=== PATIENT | male | born 1995 | race Caucasian/White ===

== ENCOUNTER 2023-01-31 13:42 | Observation (INO) | payer MEDICAID, SELFPAY ==
[2023-01-31 13:43] VITALS: BP 127/93; PULSE 114; RESP 16; TEMP 36.6; O2SAT 97
--- NOTE | 2023-01-31 13:54 | EDS_ITS ---
HPI <JESSE Leung - Last Filed: 01/31/23 18:00> History of Present Illness Chief Complaint: Substance Abuse Narrative Narrative: 27-year-old male is here to detox from fentanyl. He smokes fentanyl every 2 hours and he started a month and a half ago. Prior to that he was smoking Percocet pills. He also uses marijuana and vapes nicotine. Denies recent alcohol use. He last smoked fentanyl about 45 minutes ago and states he feels nauseated and sweaty. PFSH <JESSE Leung - Last Filed: 01/31/23 18:00> PFS Medical History ADHD Alcohol abuse Anxiety Bipolar disorder Depression Fentanyl dependence Smoker Home Medications NK 01/31/23 [History Last Taken Unknown] Allergy/AdvReac Type Severity Reaction Status Date / Time No Known Allergies Allergy Verified 01/31/23 13:45 Family History no significant family his Surgical History no surgical history Social History (Updated 01/31/23 @ 14:09 by Courtney Perez) housing: apartment Smoking Status: Current every day smoker tobacco type: e-cigarettes ROS <JESSE Leung - Last Filed: 01/31/23 18:00> ROS ED ROS Narrative Constitutional: Negative for fever, chills. CVS: Negative for palpitations, chest pain, syncope. Respiratory: Negative for shortness of breath. GI: Positive for nausea, no vomiting. EXAM <JESSE Leung - Last Filed: 01/31/23 18:00> Physical Exam Narrative Exam Narrative: CONST: Patient sitting in no acute distress. EYES: Normal inspection. ENT: Normal inspection, moist mucous membranes. NECK: Normal inspection. RESP: No respiratory distress, CTAB. CVS: Tachycardic with regular rhythm, no murmur, no gallop. ABD: Soft and nontender, no guarding or rebound, nondistended. SKIN: Color normal, no rash, warm, dry, intact. EXTREMITIES: Normal appearance, no pedal edema. NEURO: Oriented x4. PSYCH: Normal affect. Const Vital Signs: 01/31/23 13:43 01/31/23 16:00 01/31/23 16:00 Temperature 97.9 F Temperature Source Temporal Pulse Rate 114 H 82 82 Respiratory Rate 16 20 H 20 H Blood Pressure 127/93 H Blood Pressure Mean 104 Pulse Ox 97 98 98 Oxygen Delivery Method Room Air <Dr. Santos Olivarez DO - Last Filed: 01/31/23 16:30> Physical Exam Const Vital Signs: 01/31/23 13:43 01/31/23 16:00 01/31/23 16:00 Temperature 97.9 F Temperature Source Temporal Pulse Rate 114 H 82 82 Respiratory Rate 16 20 H 20 H Blood Pressure 127/93 H Blood Pressure Mean 104 Pulse Ox 97 98 98 Oxygen Delivery Method Room Air MDM <JESSE Leung - Last Filed: 01/31/23 18:00> MDM MDM Narrative Medical decision making narrative: Patient wants to detox from smoking fentanyl. Last use 45 minutes prior to arri myles. He appears well and nontoxic and tachycardic at 114 with otherwise stable vital signs. He is diaphoretic and slightly tachycardic with an otherwise benign exam. His only complaint was nausea so I ordered Zofran. CBC is within normal limits. BMP shows mild transaminitis with AST of 104, ALT 140. Urine tox positive for MDMA, benzodiazepines, and cannabinoids. Alcohol negative. Was discussed with the hospitalist for admission. Lab Data Attestation: I reviewed the patient's lab results. Labs: Laboratory Results - last 24 hr 01/31/23 14:01 WBC 8.4 RBC 4.95 Hgb 14.8 Hct 44.6 MCV 90.1 MCH 29.9 MCHC 33.2 RDW Std Deviation 41.1 RDW Coeff of Rc 12.4 Plt Count 274 MPV 8.5 Immature Gran % (Auto) 0.200 Neut % (Auto) 75.9 H Lymph % (Auto) 12.9 L Coleman % (Auto) 9.0 Eos % (Auto) 1.6 Baso % (Auto) 0.4 Absolute Neuts (auto) 6.3 Absolute Lymphs (auto) 1.08 Nucleated RBC % 0 Sodium 136 Potassium 3.7 Chloride 101 Carbon Dioxide 27.0 Anion Gap 8 BUN 14 Creatinine 1.31 H Estim Creat Clear Calc 72.40 Est GFR (MDRD) Af Amer 85 Est GFR (MDRD) Non-Af 70 BUN/Creatinine Ratio 10.7 Glucose 138 H Calcium 10.0 Total Bilirubin 0.50 AST 104 H ALT 140 H Alkaline Phosphatase 72 Total Protein 8.3 H Albumin 3.9 Globulin 4.4 H Albumin/Globulin Ratio 0.9 Urine Opiates Screen NEGATIVE Urine Methadone Screen NEGATIVE Ur Barbiturates Screen NEGATIVE Ur Phencyclidine Scrn NEGATIVE Ur Amphetamines Screen NEGATIVE MDMA (Ecstasy) Screen POSITIVE H U Benzodiazepines Scrn POSITIVE H Urine Cocaine Screen NEGATIVE U Cannabinoids Screen POSITIVE H Ur Drug Screen Comment Ethyl Alcohol < 3.0 <Dr. Santos Olivarez, DO - Last Filed: 01/31/23 16:30> MDM Lab Data Labs: Laboratory Results - last 24 hr 01/31/23 14:01 WBC 8.4 RBC 4.95 Hgb 14.8 Hct 44.6 MCV 90.1 MCH 29.9 MCHC 33.2 RDW Std Deviation 41.1 RDW Coeff of Rc 12.4 Plt Count 274 MPV 8.5 Immature Gran % (Auto) 0.200 Neut % (Auto) 75.9 H Lymph % (Auto) 12.9 L Coleman % (Auto) 9.0 Eos % (Auto) 1.6 Baso % (Auto) 0.4 Absolute Neuts (auto) 6.3 Absolute Lymphs (auto) 1.08 Nucleated RBC % 0 Sodium 136 Potassium 3.7 Chloride 101 Carbon Dioxide 27.0 Anion Gap 8 BUN 14 Creatinine 1.31 H Estim Creat Clear Calc 72.40 Est GFR (MDRD) Af Amer 85 Est GFR (MDRD) Non-Af 70 BUN/Creatinine Ratio 10.7 Glucose 138 H Calcium 10.0 Total Bilirubin 0.50 AST 104 H ALT 140 H Alkaline Phosphatase 72 Total Protein 8.3 H Albumin 3.9 Globulin 4.4 H Albumin/Globulin Ratio 0.9 Urine Opiates Screen NEGATIVE Urine Methadone Screen NEGATIVE Ur Barbiturates Screen NEGATIVE Ur Phencyclidine Scrn NEGATIVE Ur Amphetamines Screen NEGATIVE MDMA (Ecstasy) Screen POSITIVE H U Benzodiazepines Scrn POSITIVE H Urine Cocaine Screen NEGATIVE U Cannabinoids Screen POSITIVE H Ur Drug Screen Comment Ethyl Alcohol < 3.0 Treatment and Re-Evaluation Narrative: I have personally performed a face to face assessment of the patient and have reviewed the CAROLYN Note. I performed a substantive portion of the visit including all aspects of the following. My jefferson findings include: History: Patient presents requesting detox from opiates. Patient states he smokes fentanyl. Patient states his last use was approximate 1 hour prior to arrival. Patient admits to some subjective fevers. Patient admits to some palpitations. Patient denies any vomiting but admits to some nausea. Patient denies any diarrhea. Patient denies any seizures or tremors. Patient denies any suicidal or homicidal ideations. Exam: Vital signs are stable except for mild tachycardia 114. Patient is afebrile. Patient is in no acute distress. Oral mucosa is pink and moist. Neck is supple. Trachea is midline. There is no JVD. Heart was regular and tachycardic. Lungs are clear and equal bilaterally. Abdomen is soft. Bowel sounds are normal. There is no tenderness, rebound, or guarding. Cranial nerves II through XII are intact. There are no focal motor or sensory deficits noted. Medical Decision Making: Medical screening labs will be obtained. CBC will be obtained to assess for leukocytosis and anemia. Comprehensive metabolic profile will be obtained to assess for hepatic function, renal function, and electrolyte abnormality. Serum alcohol level will be obtained to assess for alcohol intoxication. Urine drug screen will be obtained to assess for substance abuse. CBC was reviewed and was within normal limits. Basic metabolic profile was reviewed and showed a slightly elevated creatinine of 1.31. The remainder was essentially within normal limits. Urine tox screen was positive for MDMA, benzodiazepines, and cannabinoids. Serum alcohol level was reviewed and was less than 3.0. Case was discussed with the hospitalist. He will admit the patient to his service. Patient understood and was agreeable with the plan. All questions were answered. Discharge Plan Dx/Rx/DC Orders Clinical Impression: Desire for detoxification, Transaminitis, Polysubstance abuse Disposition Disposition: Acute Care Hospital [facility] Discharge Date/Time: 01/31/23 16:36
[2023-01-31] MEDS: Ondansetron 4 MG/2 ML Vial IV (14:06)
[2023-01-31 14:08] VITALS: BMI 18.9
[2023-01-31 14:11] LABS: Absolute Lymphocyte Count 1.08 X10^3/uL (0.83-4.51); Absolute Neutrophil Count 6.3 X10^3/uL (2.0-7.7); Basophil# 0.03 X10^3/uL; Basophil% 0.4 % (0-1); Eosinophil# 0.13 X10^3/uL; Eosinophils% 1.6 % (0-5); Hematocrit 44.6 % (40-54); Hemoglobin 14.8 g/dL (13.0-16.5); Lymphocyte # 1.08 X10^3/ul (0.83-4.51); Lymphocyte % 12.9 % (19-41); Mean Corp Hgb Conc 33.2 g/dL (32-36); Mean Corpuscular Hgb 29.9 pg (27.0-32.0); Mean Corpuscular Volume 90.1 fL (80-94); Mean Platelet Vol. 8.5 fl (6.2-12.0); Monocyte# 0.75 X10^3/uL; NRBC Flagged by Analyzer 0 % (0-5); Neutrophil # 6.34 X10^3/uL (2.7-7.7); Neutrophil % 75.9 % (47-70); Platelet Count 274 K/mm3 (150-450); RBC Distribution Width CV 12.4 % (11.6-14.6); RBC Distribution Width SD 41.1 fl (35.1-43.9); Red Blood Count 4.95 M/mm3 (4.6-6.2); White Blood Count 8.4 K/mm3 (4.4-11.0)
[2023-01-31 14:26] LABS: ALB/GLOB Ratio 0.9 RATIO (0.9-2.4); AST(SGOT) 104 U/L (15-37); Alanine Aminotransfer ALT/SGPT 140 U/L (16-61); Albumin, Serum 3.9 g/dL (3.2-5.0); Alkaline Phosphatase 72 U/L (45-117); Anion Gap 8 (5-15); BUN 14 mg/dL (7-18); BUN/Creat Ratio 10.7 RATIO (10-20); Chloride 101 mmol/L (98-107); Creatinine, Serum 1.31 mg/dL (0.70-1.30); EST Glomerular Filtration Rate 70 mL/min (>60); Est Glom Filt Rate - Afr Amer 85 mL/min (>60); Globulin 4.4 g/dL (2.2-4.2); Glucose 138 mg/dL (74-106); Potassium 3.7 mmol/L (3.5-5.1); Protein, Total 8.3 g/dL (6.4-8.2); Sodium Level 136 mmol/L (136-145)
[2023-01-31 14:28] LABS: Amphetamine Urine VISTA NEGATIVE (<1000 ng/mL); Barbiturate Urine VISTA NEGATIVE (< 200 ng/mL); Benzodiazepine Urine VISTA POSITIVE (< 200 ng/mL); Cocaine Urine VISTA NEGATIVE (< 300 ng/mL); Ecstacy Urine VISTA POSITIVE (< 500 ng/mL); Methadone Urine VISTA NEGATIVE (< 300 ng/mL); PCP Urine VISTA NEGATIVE (< 25 ng/mL); THC Urine VISTA POSITIVE (< 50 ng/mL); Vista UDS pH Range 7
[2023-01-31 15:04] LABS: Alcohol, Blood (Medical)-Serum < 3.0 mg/dL
[2023-01-31 16:00] VITALS: PULSE 82; RESP 20; O2SAT 98
--- NOTE | 2023-01-31 16:03 | PCM.HP.STD ---
HPI - General General Date of Admission: 01/31/23 HPI Narrative VIVI ZIMMER, is a 27 M who presents to the hospital requesting detox from opiates. He smokes fentanyl which she is never done before any started about a month and a half ago. His last use was about 45 minutes prior to presenting to the hospital for detox. He has gone through detox before for other drugs but he says that he is never used final before and he is never gone through detox here. [facility] Medical History (Updated 01/31/23 @ 14:37 by JESSE Leung) ADHD Fentanyl dependence Home Medications NK 01/31/23 [History Last Taken Unknown] Allergy/AdvReac Type Severity Reaction Status Date / Time No Known Allergies Allergy Verified 01/31/23 13:45 Family History no significant family his no significant family history Surgical History no surgical history no surgical history Social History (Updated 01/31/23 @ 14:09 by Courtney Perez) housing: apartment Smoking Status: Current every day smoker tobacco type: e-cigarettes ROS Constitutional Constitutional: Denies chills, fatigue, fever(s) or malaise Eyes Eyes: Denies blurry vision ENT HEENT: Denies headache(s) or nasal discharge Cardiovascular Cardiovascular: Denies chest pain, dyspnea on exertion or syncope Respiratory/Chest Respiratory/Chest: Denies cough, shortness of breath at rest or shortness of breath with exertion Gastrointestinal Gastrointestinal: Reports nausea; Denies constipation, diarrhea or vomiting Genitourinary Genitourinary: Denies dysuria Neurologic Neurologic: Denies focal weakness, numbness or tremor(s) Psychiatric Psychiatric: Reports anxiety; Denies depression Vital Signs Vital Signs Vital Signs: 01/31/23 13:43 Temperature 97.9 F Temperature Source Temporal Pulse Rate 114 H Respiratory Rate 16 Blood Pressure 127/93 H Blood Pressure Mean 104 Pulse Ox 97 Oxygen Delivery Method Room Air Weight Weight: 132 lb 0.91 oz Body Mass Index (BMI) 18.9 Physical Exam Narrative General: Alert, Oriented x3, Cooperative, No apparent distress, anxious HEENT: Atraumatic, PERRLA, EOMI, Normocephalic Oral: Moist Mucosa Neck: Supple, No JVD Lungs: Clear to auscultation, Normal air movement, No rhonchi, No wheeze, No rales Cardiovascular: Regular rate, Regular Rhythm, Normal S1, Normal S2, No murmurs Abdomen: Soft, Non Tender, Non-Distended, No Hepato-splenomegaly Extremities: No edema, Capillary Refill Less than 3 Seconds Skin: No rashes, No breakdown Musculoskeletal: No Tenderness to Palpation of Joints or Extremities Neurological: Cranial nerves II-XII grossly intact, Motor Exam 5/5 strength throughout, Sensory exam intact to light touch and pain Psych/Mental Status: Normal Affect, anxious Results Lab / Micro Data 01/31/23 14:01 01/31/23 14:01 Labs: Laboratory Results - last 24 hr 01/31/23 14:01: WBC 8.4, RBC 4.95, Hgb 14.8, Hct 44.6, MCV 90.1, MCH 29.9, MCHC 33.2, RDW Std Deviation 41.1, RDW Coeff of Rc 12.4, Plt Count 274, MPV 8.5, Immature Gran % (Auto) 0.200, Neut % (Auto) 75.9 H, Lymph % (Auto) 12.9 L, [place] % (Auto) 9.0, Eos % (Auto) 1.6, Baso % (Auto) 0.4, Absolute Neuts (auto) 6.3, Absolute Lymphs (auto) 1.08, Nucleated RBC % 0, Sodium 136, Potassium 3.7, Chloride 101, Carbon Dioxide 27.0, Anion Gap 8, BUN 14, Creatinine 1.31 H, Estim Creat Clear Calc 72.40, Est GFR (MDRD) Af Amer 85, Est GFR (MDRD) Non-Af 70, BUN/Creatinine Ratio 10.7, Glucose 138 H, Calcium 10.0, Total Bilirubin 0.50, AST 104 H, ALT 140 H, Alkaline Phosphatase 72, Total Protein 8.3 H, Albumin 3.9, Globulin 4.4 H, Albumin/Globulin Ratio 0.9, Urine Opiates Screen NEGATIVE, Urine Methadone Screen NEGATIVE, Ur Barbiturates Screen NEGATIVE, Ur Phencyclidine Scrn NEGATIVE, Ur Amphetamines Screen NEGATIVE, MDMA (Ecstasy) Screen POSITIVE H, U Benzodiazepines Scrn POSITIVE H, Urine Cocaine Screen NEGATIVE, U Cannabinoids Screen POSITIVE H, Ur Drug Screen Comment , Ethyl Alcohol < 3.0 Assessment & Plan Assessment/Plan (1) Desire for detoxification: PLAN: Plan 1. Opiate detox/tobacco abuse/elevated LFTs ? Will check a CMP in the morning ? Continue with the opiate withdrawal protocol, he only smokes fentanyl he denies ever using IV drugs so we will not check hepatitis or HIV ? Discussed tobacco cessation will provide a nicotine patch he vapes DVT: Ambulation 65 minutes was spent on direct patient care, including documentation as well as chart review and collaboration with colleagues Charges/Coding Visit Charges Inpatient E&M: 08033 Init Hosp L2
[2023-01-31 16:47] VITALS: BP 120/73; PULSE 84; RESP 18; TEMP 36.7; O2SAT 100
[2023-01-31 16:49] VITALS: BMI 19.6
[2023-01-31] MEDS: Methocarbamol 750 MG Tablet PO (17:15)
[2023-01-31] MEDS: Gabapentin 300 MG Capsule PO (17:15)
[2023-01-31] MEDS: Ondansetron 8 MG Tablet PO (17:15)
[2023-01-31] MEDS: Dicyclomine 10 MG Capsule 20 MG PO (20:14)
[2023-01-31] MEDS: Buprenorphine HCl 2 MG TAB.SUBL 4 MG SL (20:14)
[2023-01-31] MEDS: traZODone 100 MG Tablet PO (20:14)
[2023-01-31] MEDS: hydrOXYzine PAM 25 MG Capsule 50 MG PO (20:14)
[2023-01-31 20:15] VITALS: BP 127/82; PULSE 93; RESP 16; TEMP 37.2; O2SAT 98
[2023-01-31] MEDS: Mag Hydrox/Al Hydrox/Simeth 30 ML UDC PO (22:11)
[2023-01-31] MEDS: Famotidine 20 MG Tablet PO (22:11)
[2023-01-31] MEDS: cloNIDine HCl 0.1 MG Tablet PO (22:11)
[2023-02-01] MEDS: Methocarbamol 750 MG Tablet PO ×2 (00:55→17:16)
[2023-02-01] MEDS: Gabapentin 300 MG Capsule PO ×3 (00:55→17:16)
[2023-02-01] MEDS: Ondansetron 8 MG Tablet PO ×2 (00:55→17:16)
[2023-02-01 05:21] LABS: AST(SGOT) 77 U/L (15-37); Alanine Aminotransfer ALT/SGPT 121 U/L (16-61); Albumin, Serum 3.8 g/dL (3.2-5.0); Alkaline Phosphatase 68 U/L (45-117); Anion Gap 8 (5-15); BUN 15 mg/dL (7-18); BUN/Creat Ratio 13.4 RATIO (10-20); Calcium,Total 9.1 mg/dL (8.5-10.1); Chloride 102 mmol/L (98-107); Creatinine, Serum 1.12 mg/dL (0.70-1.30); EST Glomerular Filtration Rate 84 mL/min (>60); Est Glom Filt Rate - Afr Amer 102 mL/min (>60); Estimated Creatinine Clearance 87.85 ml/min; Glucose 115 mg/dL (74-106); Potassium 4.1 mmol/L (3.5-5.1); Protein, Total 7.8 g/dL (6.4-8.2); Sodium Level 134 mmol/L (136-145)
[2023-02-01] MEDS: Dicyclomine 10 MG Capsule 20 MG PO ×2 (06:21→17:17)
[2023-02-01] MEDS: hydrOXYzine PAM 25 MG Capsule 50 MG PO ×2 (06:21→12:06)
[2023-02-01 06:27] VITALS: BP 109/63; PULSE 90; RESP 16; TEMP 36.4; O2SAT 94
[2023-02-01] MEDS: cloNIDine HCl 0.1 MG Tablet PO ×2 (09:03→17:17)
[2023-02-01] MEDS: Famotidine 20 MG Tablet PO ×2 (09:03→21:41)
[2023-02-01 09:11] VITALS: BP 122/66; PULSE 94; RESP 18; TEMP 37.3; O2SAT 97
--- NOTE | 2023-02-01 11:40 | ADDICTION ---
This automobile and property underwriter met with PT to conduct ASAM, MSE, AUDIT, DUDIT assessments and to plan for d/c. PT A+Ox4 and participated actively. All assessments completed and placed in PT's chart. PT plans to f/u with [facility] for inpatient treatment services, however he has to get his belongings at a friends house and go back to [place] upon d/c. Pt did not want this worker to set up admission. He reports that he has already contacted them. PT did not indicate a need for transportation post d/c from [facility]. He did report tht he will need to make a phone call upon D/C for his ride.
[2023-02-01 12:25] VITALS: BP 109/66; PULSE 95; RESP 18; TEMP 36.9; O2SAT 95
--- NOTE | 2023-02-01 12:45 | PN_ITS ---
Subjective Subjective Patient seen and examined. He complained of tremors, shakes and increased sweating. Review of systems is otherwise negative. HE has remained hemodynamically stable. Objective Data Objective Data Vital Signs: Vital Signs Temp Pulse Resp BP Pulse Ox O2 Del Method 98.4 F 95 18 109/66 95 Room Air 02/01/23 12:25 02/01/23 12:25 02/01/23 12:25 02/01/23 12:25 02/01/23 12:25 02/01/23 12:25 Oxygen Delivery Method Room Air Weight: 137 lb Body Mass Index (BMI) 19.6 Lab / Micro Data 01/31/23 14:01 02/01/23 04:12 Labs: Laboratory Results - last 24 hr 01/31/23 14:01: WBC 8.4, RBC 4.95, Hgb 14.8, Hct 44.6, MCV 90.1, MCH 29.9, MCHC 33.2, RDW Std Deviation 41.1, RDW Coeff of Rc 12.4, Plt Count 274, MPV 8.5, Immature Gran % (Auto) 0.200, Neut % (Auto) 75.9 H, Lymph % (Auto) 12.9 L, [place] % (Auto) 9.0, Eos % (Auto) 1.6, Baso % (Auto) 0.4, Absolute Neuts (auto) 6.3, Absolute Lymphs (auto) 1.08, Nucleated RBC % 0, Sodium 136, Potassium 3.7, Chloride 101, Carbon Dioxide 27.0, Anion Gap 8, BUN 14, Creatinine 1.31 H, Estim Creat Clear Calc 72.40, Est GFR (MDRD) Af Amer 85, Est GFR (MDRD) Non-Af 70, BUN/Creatinine Ratio 10.7, Glucose 138 H, Calcium 10.0, Total Bilirubin 0.50, AST 104 H, ALT 140 H, Alkaline Phosphatase 72, Total Protein 8.3 H, Albumin 3.9, Globulin 4.4 H, Albumin/Globulin Ratio 0.9, Urine Opiates Screen NEGATIVE, Urine Methadone Screen NEGATIVE, Ur Barbiturates Screen NEGATIVE, Ur Phencyclidine Scrn NEGATIVE, Ur Amphetamines Screen NEGATIVE, MDMA (Ecstasy) Screen POSITIVE H , U Benzodiazepines Scrn POSITIVE H, Urine Cocaine Screen NEGATIVE, U Cannabinoids Screen POSITIVE H, Ur Drug Screen Comment , Ethyl Alcohol < 3.0 02/01/23 04:12: Sodium 134 L, Potassium 4.1, Chloride 102, Carbon Dioxide 24.0, Anion Gap 8, BUN 15, Creatinine 1.12, Estim Creat Clear Calc 87.85, Est GFR (MDRD) Af Amer 102, Est GFR (MDRD) Non-Af 84, BUN/Creatinine Ratio 13.4, Glucose 115 H, Calcium 9.1, Total Bilirubin 0.60, AST 77 H, ALT 121 H, Alkaline Phosphatase 68, Total Protein 7.8, Albumin 3.8, Globulin 4.0, Albumin/Globulin Ratio 1.0 Physical Exam Const alert, oriented x3 and no apparent distress General Appearance: cooperative HEENT normocephalic, head/scalp atraumatic, moist oral mucous membranes and oropharynx normal Eyes PERRL and EOMs intact bilaterally Neck no lymphadenopathy and supple Lymph Lymphatic: no lymphadenopathy noted and no lymphedema noted Resp normal respiratory effort, normal air movement and clear to auscultation bilaterally Cardio regular rate, regular rhythm, S1 normal heart sound and S2 normal heart sound GI normal to inspection, nondistended, normoactive bowel sounds, soft to palpation, non-tender and non-distended Extremity normal capillary refill and no clubbing, cyanosis or edema General Extremity: no tenderness to palpation of joints or extremities Skin General Skin Exam: no breakdown Neuro CN's II-XII intact bilaterally, no focal motor deficits, no sensory deficits noted and deep tendon reflexes 2+ bilaterally Motor Exam: strength 5/5 throughout and general weakness Psych thought process normal and cooperative Appearance: appropriate Assessment & Plan Assessment/Plan (1) Polysubstance abuse: (2) Desire for detoxification: PLAN: Plan #Acute opioid withdrawal * on opioid withdrawal protocol with buprenorphine * monitor CINA score * adjunctive meds for symptomatic relief * urine tox positive for MDMA, benzodiazepines nad cannabinoids * DVT prophylaxis; SCDs Charges/Coding Visit Charges Inpatient E&M: 04621 Subs Hosp L2
--- NOTE | 2023-02-01 15:31 | CHAPLAIN ---
Type of Pastoral Visit _x__ Initial Visit ___ Follow-up Visit ___ On-call Visit ___ General Patient Visit ___ Spiritual Assessment ___ Family Conference ___ Bereavement ___ Rapid Response ___ Code Blue ___ Other (describe below) Pastoral Care Referral From ___ Patient _x__ Family ___ Nurse ___ Physician ___ Ticket Scheduler ___ Marketing Services Manager ___ Other (describe below) Sacrament/Intervention _x__ Active listening ___ Anointing ___ Advent ___ Bereavement ___ Communion ___ Elsa exploration ___ ___ Life review ___ Prayer ___ Reconciliation ___ Sacrament of Sick _x__ Supportive presence ___ Wedding ___ Other (describe below) Pastoral Comments patient is awake; 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
[2023-02-01 17:00] VITALS: BP 115/73; PULSE 88; RESP 18; TEMP 37.2; O2SAT 94
[2023-02-01] MEDS: traZODone 100 MG Tablet PO (21:41)
[2023-02-01 21:47] VITALS: BP 108/69; PULSE 75; RESP 16; TEMP 37.1; O2SAT 95
[2023-02-01] MEDS: Acetaminophen 325 MG Tablet 650 MG PO (22:38)
[2023-02-02] MEDS: Ondansetron 8 MG Tablet PO (02:43)
[2023-02-02] MEDS: Gabapentin 300 MG Capsule PO ×3 (02:43→23:26)
[2023-02-02 02:52] VITALS: BP 96/62; PULSE 81; RESP 16; TEMP 37; O2SAT 94
[2023-02-02 08:53] VITALS: BP 112/62; PULSE 83; RESP 18; TEMP 36.8; O2SAT 98
[2023-02-02] MEDS: Famotidine 20 MG Tablet PO ×2 (08:57→23:26)
[2023-02-02] MEDS: hydrOXYzine PAM 25 MG Capsule 50 MG PO ×2 (09:02→14:57)
[2023-02-02] MEDS: Methocarbamol 750 MG Tablet PO ×2 (09:02→14:56)
--- NOTE | 2023-02-02 11:42 | PN_ITS ---
Subjective Subjective Patient seen and examined. He complained of sweating and tremors as well as abdominal cramping. Review of systems otherwise negative. He has otherwise remained hemodynamically stable. Objective Data Objective Data Vital Signs: Vital Signs Temp Pulse Resp BP Pulse Ox O2 Del Method 98.2 F 83 18 112/62 98 Room Air 02/02/23 08:53 02/02/23 08:53 02/02/23 08:53 02/02/23 08:53 02/02/23 08:53 02/02/23 08:53 Oxygen Delivery Method Room Air Weight: 137 lb Body Mass Index (BMI) 19.6 Lab / Micro Data 01/31/23 14:01 02/01/23 04:12 Physical Exam Const alert, oriented x3 and no apparent distress General Appearance: cooperative HEENT normocephalic, head/scalp atraumatic, moist oral mucous membranes and oropharynx normal Eyes PERRL and EOMs intact bilaterally Neck no lymphadenopathy and supple Lymph Lymphatic: no lymphadenopathy noted and no lymphedema noted Resp normal respiratory effort, normal air movement and clear to auscultation bilaterally Cardio regular rate, regular rhythm, S1 normal heart sound and S2 normal heart sound GI normal to inspection, nondistended, normoactive bowel sounds, soft to palpation, non-tender and non-distended Extremity normal capillary refill and no clubbing, cyanosis or edema General Extremity: no tenderness to palpation of joints or extremities Skin General Skin Exam: no breakdown Neuro CN's II-XII intact bilaterally, no focal motor deficits, no sensory deficits noted and deep tendon reflexes 2+ bilaterally Motor Exam: strength 5/5 throughout and general weakness Psych thought process normal and cooperative Appearance: appropriate Assessment & Plan Assessment/Plan (1) Polysubstance abuse: (2) Desire for detoxification: PLAN: Plan #Acute opioid withdrawal * on opioid withdrawal protocol with buprenorphine * monitor CINA score * adjunctive meds for symptomatic relief * urine tox positive for MDMA, benzodiazepines and cannabinoids * DVT prophylaxis; SCDs Charges/Coding Visit Charges Inpatient E&M: 40953 Subs Hosp L2
[2023-02-02 14:50] VITALS: BP 115/67; PULSE 90; RESP 18; TEMP 37.1; O2SAT 97
--- NOTE | 2023-02-02 15:04 | CHAPLAIN ---
Type of Pastoral Visit ___ Initial Visit ___ Follow-up Visit ___ On-call Visit ___ General Patient Visit ___ Spiritual Assessment ___ Family Conference ___ Bereavement ___ Rapid Response ___ Code Blue ___ Other (describe below) Pastoral Care Referral From ___ Patient ___ Family ___ Nurse ___ Physician ___ Regional Guide ___ Behaviorist ___ Other (describe below) Sacrament/Intervention ___ Active listening ___ Anointing ___ Protestant ___ Bereavement ___ Communion ___ Elsa exploration ___ ___ Life review ___ Prayer ___ Reconciliation ___ Sacrament of Sick ___ Supportive presence ___ Wedding ___ Other (describe below) Pastoral Comments follow up with patient who is totally wrapped in blankets up to his mouth; offer of support given; pt states that he does not feel like talking; gave opportunity for pt to accept support later if her would so desire
[2023-02-02 23:25] VITALS: BP 104/66; PULSE 79; RESP 16; TEMP 36.6; O2SAT 95
[2023-02-02] MEDS: traZODone 100 MG Tablet PO (23:26)
--- NOTE | 2023-02-03 03:55 | NURSING ---
pt called out, he asked to leave ama, signed paper, furnace fitter, nursing super & dr notified. pt reports he has the information he needs to follow up for rehab help. called security who walked him out.
--- NOTE | 2023-02-03 03:57 | PCM.HOSP.N ---
Hospitalist Note Patient left AMA 3:50 am deferring any further withdrawal treatment.
--- NOTE | 2023-02-03 14:23 | DS.PCM_ITS ---
Providers Date of Admission: 01/31/23 Date of Discharge: 02/03/23 Primary Care Physician: Erika Primary Care Phys Reason For Visit: OPIATE WITHDRAWAL Diagnosis Discharge Diagnosis (1) Polysubstance abuse: Status: Acute Code(s): F19.10 - Other psychoactive substance abuse, uncomplicated (2) Desire for detoxification: Status: Acute Plan #Acute opioid withdrawal * on opioid withdrawal protocol with buprenorphine * monitor CINA score * adjunctive meds for symptomatic relief * urine tox positive for MDMA, benzodiazepines and cannabinoids * DVT prophylaxis; SCDs Medications at Discharge Home Medications NK 01/31/23 Hospital Course Operations None Procedures None Summary of Care Provided Minutes Spent on Discharge: 45 Hospital Course: Patient is a 27-year-old male with a past medical history as outlined was admitted through the ED on 01/31/2023 for acute opioid withdrawal. Patient smoked fentanyl and has started about a month and a half prior to admission. His last use was about 45 minutes prior to admission. On admission urine tox was positive for cannabinoids and benzodiazepines as well as MDMA ecstasy. He was admitted and managed for acute opioid withdrawal. He was started on withdrawal protocol with buprenorphine. Patient tolerated the withdrawal process for 2 days. He was just discharged on 02/03/2023 patient signed out AGAINST MEDICAL ADVICE and was up to 2022. Patient was not seen by this hospitalist prior to his signing out AMA as he signed out at around 3:57 AM. Physical Exam Narrative not done as he wasnt seen on day he signed out AMA Weight / BMI Weight Weight: 137 lb Body Mass Index (BMI) 19.6 ABG / Lab / Microbiology Data 01/31/23 14:01 02/01/23 04:12 Meaningful Use Info Meaningful Use Diagnoses (Choose all that apply): None applicable Discharge Plan Admission Admit Date/Time: 01/31/23 16:02 Attending Provider: Delia Woods Primary Care Provider: Care Physician,No Primary Consulting Providers: Felton Zamorano Discharge Orders/Prescriptions Prescriptions: No Action NK Referrals / Follow Up: Care Physician,No Primary [Primary Care Provider] - NOT,DEFINED [Non-Staff] - Disposition Disposition (needs filled in before D/C Order can be placed): Against Medical Advice Charges/Coding Visit Charges Inpatient E&M: 59101 Disch Hosp
== END 2023-02-03 03:59 | disposition left against medical advice (07) | DRG 770 ==
LOC: ED 14:28 → MS3 16:41
PROVIDERS: Physician Assistant; Admitting Provider Family Medicine; Emergency Provider Emergency Medicine; Visit Provider Student in an Organized Health Care Education/Training Program
DX: F11.13 Opioid abuse with withdrawal (principal); F12.90 Cannabis use, unspecified, uncomplicated; F17.290 Nicotine dependence, other tobacco product, uncomplicated; Z53.29 Procedure and treatment not carried out because of patient's decision for other reasons; F17.210 Nicotine dependence, cigarettes, uncomplicated
CPT/HCPCS: 36415; 80053; 80307; 80320; 85025; 96374; 99221; 99283; G0378; G0480

== ENCOUNTER 2023-02-03 04:53 | Emergency (ER) | payer MEDICAID, SELFPAY ==
[2023-02-03 04:55] VITALS: BP 108/77; PULSE 100; RESP 18; TEMP 36.9; O2SAT 96; BMI 18.3
--- NOTE | 2023-02-03 05:04 | EDS_ITS ---
HPI History of Present Illness Chief Complaint: Substance Abuse Informant: patient Narrative Narrative: Patient has a history of polysubstance abuse, does not use IV drugs, has been admitted here to the hospital for detox for the last 3 days. He left AGAINST MEDICAL ADVICE an hour ago, and states that he regrets that decision, feels like his withdrawal is worsening, and presents to see if he can get back into detox. PFSH PFSH Medical History ADHD Alcohol abuse Anxiety Bipolar disorder Depression Fentanyl dependence Smoker Home Medications NK 01/31/23 [History Last Taken Unknown] Allergy/AdvReac Type Severity Reaction Status Date / Time No Known Allergies Allergy Verified 02/03/23 04:54 Social History (Updated 01/31/23 @ 14:09 by Courtney Perez) housing: apartment Smoking Status: Current every day smoker tobacco type: e-cigarettes ROS ROS ED Constitutional Constitutional ED: Denies chills or fever(s) Eyes Eyes: Denies change in vision or diplopia ENT ENT ED: Denies rhinorrhea or sore throat Cardiovascular Cardiovascular: Denies chest pain or palpitations Respiratory/Chest Respiratory/Chest: Denies cough or dyspnea Gastrointestinal Gastrointestinal: Denies abdominal pain, diarrhea, nausea or vomiting Genitourinary Genitourinary ED: Denies dysuria or hematuria Musculoskeletal Musculoskeletal: Denies back pain or neck pain Integumentary Denies abscess or rash Neurologic Neurologic: Reports tremor(s); Denies headache(s), paresthesias or weakness Psychiatric Psychiatric: Reports anxiety; Denies suicidal thoughts EXAM Physical Exam Const Vital Signs: 02/03/23 04:55 Temperature 98.5 F Temperature Source Temporal Pulse Rate 100 Respiratory Rate 18 Blood Pressure 108/77 Blood Pressure Mean 87 Pulse Ox 96 Oxygen Delivery Method Room Air Positive well nourished and well developed General Appearance ED: well developed and NAD HEENT Reports moist mucous membranes normocephalic and atraumatic Eyes PERRL and EOMs intact bilaterally Neck full ROM and supple Resp normal respiratory effort and clear to auscultation bilaterally Cardio regular rate, regular rhythm and no murmurs GI non-tender and non-distended Auscultation: normoactive bowel sounds Palpation: soft Back/Spine no CVA tenderness General Back: other FROM Extremity normal to inspection General Extremety ED: Negative for edema, pulses abnormal or tenderness General Extremity: Negative for edema or pulses abnormal Neuro oriented x3, CN's II-XII intact bilaterally and no sensory deficits noted Sensorium / Orientation: awake and alert Motor Exam: strength 5/5 throughout Psych Mood & Affect: anxious Skin no rashes or lesions noted and no wounds MDM MDM MDM Narrative Medical decision making narrative: I spoke with the nursing automotive fleet supervisor. The patient signed out an hour ago at about 3:30 AM, his ride would not come to get him until daylight, so security escorted him out of the hospital since he signed out and wanted to leave then, and he went out and sat on the curb and came back into the ER in a very short period of time. He denies using any substances since he left. However, security reviewed footage from outdoor cameras of the hospital and saw him getting to a white Honda prior to getting out and signing into the ER. Discussed with hospitalist while providing him with some symptomatic treatment, offering Vistaril, tramadol, and clonidine, requesting urine drug screen to prove that he did not use again. Apparently, he has been refusing Subutex which she was being offered in the hospital by the hospitalist team. This was confirmed by discussing with floor nursing staff. Given this after getting the medications he is offered here, plan will be for discharge and referral to 180 for outpatient addiction services as needed. Discharge Plan Triage Chief Complaint: Substance Abuse ED Provider: Charbel Bellamy Dx/Rx/DC Orders Clinical Impression: Opiate withdrawal, Polysubstance abuse Instructions: ED Opioid Withdrawal Prescriptions: No Action NK Primary Care Provider: Care Physician,No Primary Referrals: Care Physician,No Primary [Primary Care Provider] - [facility] [Non-Staff] - As soon as possible Disposition Disposition: Home, Self Care
[2023-02-03] MEDS: hydrOXYzine PAM 25 MG Capsule 50 MG PO (05:16)
[2023-02-03] MEDS: cloNIDine HCl 0.1 MG Tablet PO (05:16)
[2023-02-03] MEDS: traMADol 50 MG Tablet PO (05:16)
== END 2023-02-03 05:29 | disposition home or self-care (01) ==
PROVIDERS: Emergency Provider Emergency Medicine; Visit Provider Emergency Medicine
DX: F11.23 Opioid dependence with withdrawal (principal); F19.19 Other psychoactive substance abuse with unspecified psychoactive substance-induced disorder; F17.290 Nicotine dependence, other tobacco product, uncomplicated; F41.9 Anxiety disorder, unspecified
CPT/HCPCS: 99282